=== PATIENT | male | born 1950 ===

== ENCOUNTER → 2020-11-21 15:00 | Outpatient (CLI) | payer OTHER ==
[~2020-11-21 15:00] MED LIST: CIPROFLOXACIN500 MG PO; TRAMADOL HCL-AP1 TAB PO; ZOFRAN4 MG PO
== END | disposition home or self-care (01) ==
LOC: PPH VACUNA 15:00
DX: Z23 Encounter for immunization (principal)

== ENCOUNTER 2021-07-03 08:00 | Outpatient (CLI) | payer OTHER | END 2021-07-03 08:30 | disposition home or self-care (01) | LOC: PPH VACUNA 08:00 | PROVIDERS: ATTEND Emergency Medicine Pediatric Emergency Medicine | DX: Z23 Encounter for immunization (principal) ==

== ENCOUNTER 2021-12-15 09:14 | Outpatient (CLI) | payer OTHER | END 2021-12-15 09:24 | disposition home or self-care (01) | LOC: PPH VACUNA 09:14 | PROVIDERS: ATTEND Emergency Medicine Pediatric Emergency Medicine | DX: Z23 Encounter for immunization (principal) ==

== ENCOUNTER 2024-11-20 07:43 | Outpatient (CLI) | payer OTHER | END 2024-11-20 07:47 | disposition home or self-care (01) | LOC: SONOGRAMA 07:43 | DX: N18.32 Chronic kidney disease, stage 3b (principal); I12.9 Hypertensive chronic kidney disease with stage 1 through stage 4 chronic kidney disease, or unspecified chronic kidney disease ==